=== PATIENT | female | born 1950 | race American Indian/Alaskan Native ===

== ENCOUNTER 2018-01-10 09:02 | Observation (INO) | payer MEDICARE ==
[2018-01-10 09:39] LABS: Basophils # (Auto) 0.1 K/mm3 (0.0-0.1); Basophils % (Auto) 1.1 % (0.0-1.8); Eosinophils # (Auto) 0.7 K/mm3 (0.0-0.4); Eosinophils % (Auto) 9.2 % (0.0-4.3); Hematocrit 36.4 % (30.3-42.9); Hemoglobin 12.3 gm/dl (10.1-14.3); Lymphocytes # (Auto) 1.7 K/mm3 (1.2-5.4); Lymphocytes % (Auto) 23.5 % (13.4-35.0); Mean Corpuscular HGB Conc 34 % (30-34); Mean Corpuscular Hemoglobin 31 pg (28-32); Mean Corpuscular Volume 92 fl (79-97); Monocytes # (Auto) 0.5 K/mm3 (0.0-0.8); Monocytes % (Auto) 7.4 % (0.0-7.3); Platelet Count 296 K/mm3 (140-440); Red Blood Count 3.97 M/mm3 (3.65-5.03); Red Cell Distribution Width 16.2 % (13.2-15.2)
[2018-01-10] MEDS ORDERED: NITROSTAT SL PRN (09:51)
[2018-01-10] MEDS ORDERED: MORPHINE IV ONE (09:51)
--- NOTE | 2018-01-10 09:52 | Emergency Department Report ---
ED Chest Pain HPI - General Chief Complaint: Chest Pain Stated Complaint: CHEST PAIN Time Seen by Provider: 01/10/18 09:37 Source: patient, RN notes reviewed, old records reviewed Mode of arrival: Ambulatory Limitations: No Limitations - History of Present Illness Initial Comments: This is a pleasant 67-year-old female who is not known to this provider previously, has a past medical history of ischemic heart disease, status post PCI, for cardiac graft, high cholesterol, hypertension. Her framer is Dr. Perales Patient presents to the ER with a complaint of intermittent chest pain, which radiates to the left arm, intermittently since Saturday. The pain feels tight and squeezing. It does not have exacerbating or relieving factors. Denies vomiting, diaphoresis, has intermittent shortness of breath, denies DVT, pulmonary embolus risk factors. Reports compliance with her Plavix therapy. Had a cardiac catheterization at this hospital about one year ago, which demonstrated a [place] coronary system, left main and LAD, mid 80% diagonal, 100 % circumflex patent, RCA 100%. Also found to have "all bypass grafts were open within normal LAD function, normal left end-diastolic pressure was 12 mmHg." MD Complaint: chest pain -: Gradual Onset: during rest, during exertion Pain Location: substernal, left chest Pain Radiation: LUE Severity: moderate Quality: tightness, aching Consistency: intermittent Improves With: nothing Worsens With: nothing re: dyspnea Aspirin use within the Past 7 Days: (0) No - Related Data On Oral Contraceptives: No Home Medications Medication Instructions Recorded Confirmed Last Taken Clopidogrel [Plavix] 75 mg PO DAILY 10/19/13 01/10/18 12/05/16 Losartan [Cozaar] 100 mg PO QDAY 01/10/18 01/10/18 Unknown Previous Rx's Medication Instructions Recorded Last Taken Type Acetaminophen [Acetaminophen TAB] 325 mg PO Q4H PRN #30 tablet 12/07/16 Unknown Rx AtorvaSTATin [Lipitor] 40 mg PO HS #30 tablet 12/07/16 Unknown Rx Famotidine [Pepcid] 20 mg PO BID #60 tablet 12/07/16 Unknown Rx ISOSORBIDE MONOnitrate [Imdur ER] 60 mg PO QDAY #30 day 12/07/16 Unknown Rx Metoprolol [Lopressor TAB] 50 mg PO BID #60 tablet 12/07/16 Unknown Rx Allergies Allergy/AdvReac Type Severity Reaction Status Date / Time aspirin Allergy Swelling Verified 01/10/18 09:15 shellfish Allergy Anaphylaxis Uncoded 05/30/15 08:04 Heart Score - HEART Score History: Moderately suspicious EKG: Non-specific Age: > 65 Risk factors: > 3 risk factors or hx of atherosclerotic disease Troponin: < normal limit HEART Score: 6 - Critical Actions Critical Actions: 4-6 pts:12-16.6% risk of adverse cardiac event. Should be admitted ED Review of Systems ROS: Stated complaint: CHEST PAIN Other details as noted in HPI Comment: All other systems reviewed and negative Cardiovascular: chest pain ED Past Medical Hx - Past Medical History Hx Hypertension: Yes Hx CVA: Yes (x3) Hx Heart Attack/AMI: Yes Hx Arthritis: Yes Hx Asthma: Yes Hx COPD: No Additional medical history: gout - Surgical History Hx Coronary Stent: Yes (1999 & 2001) Hx Open Heart Surgery: Yes Additional Surgical History: bypass x 4, bilateral knee surgeries - Social History Smoking Status: Never Smoker Substance Use Type: Alcohol - Medications Home Medications: Home Medications Medication Instructions Recorded Confirmed Last Taken Type Clopidogrel [Plavix] 75 mg PO DAILY 10/19/13 01/10/18 12/05/16 History Acetaminophen [Acetaminophen TAB] 325 mg PO Q4H PRN #30 tablet 12/07/16 Unknown Rx AtorvaSTATin [Lipitor] 40 mg PO HS #30 tablet 12/07/16 01/10/18 Unknown Rx Famotidine [Pepcid] 20 mg PO BID #60 tablet 12/07/16 01/10/18 Unknown Rx ISOSORBIDE MONOnitrate [Imdur ER] 60 mg PO QDAY #30 day 12/07/16 01/10/18 Unknown Rx Metoprolol [Lopressor TAB] 50 mg PO BID #60 tablet 12/07/16 01/10/18 Unknown Rx Losartan [Cozaar] 100 mg PO QDAY 01/10/18 01/10/18 Unknown History ED Physical Exam - General Limitations: No Limitations General appearance: alert, in no apparent distress - Head Head exam: Present: atraumatic, normocephalic - Eye Eye exam: Present: normal appearance, EOMI. Absent: nystagmus - ENT ENT exam: Present: normal exam, normal orophraynx, mucous membranes moist, normal external ear exam - Neck Neck exam: Present: normal inspection, full ROM. Absent: tenderness, meningismus - Respiratory Respiratory exam: Present: normal lung sounds bilaterally. Absent: respiratory distress - Cardiovascular Cardiovascular Exam: Present: regular rate, normal rhythm, normal heart sounds. Absent: bradycardia, tachycardia, irregular rhythm, systolic murmur, diastolic murmur, rubs, gallop - GI/Abdominal GI/Abdominal exam: Present: soft. Absent: distended, tenderness, guarding, rebound, rigid, pulsatile mass - Extremities Exam Extremities exam: Present: normal inspection, full ROM, normal capillary refill , other (2+ pulses noted in the bilateral upper, lower extremities. Compartments soft. No long bony tenderness. The pelvis is stable.). Absent: pedal edema, joint swelling, calf tenderness - Back Exam Back exam: Present: normal inspection, full ROM. Absent: tenderness, CVA tenderness (R), paraspinal tenderness, vertebral tenderness - Neurological Exam Neurological exam: Present: alert, oriented X3, CN II-XII intact, normal gait, other (Extraocular movements intact. Tongue midline. No facial droop. Facial sensation intact to light touch in the V1, V2, V3 distribution bilaterally. 5 and 5 strength in 4 extremities.. Sensation is intact to light touch in 4 extremities.). Absent: motor sensory deficit - Psychiatric Psychiatric exam: Present: normal affect, normal mood - Skin Skin exam: Present: warm, dry, intact, normal color. Absent: rash ED Course Vital Signs 01/10/18 09:15 Temperature 98.2 F Pulse Rate 60 Respiratory 18 Rate Blood Pressure 191/92 O2 Sat by Pulse 100 Oximetry JANNA score - Janna Score Age > 65: (1) Yes Aspirin use within the Past 7 Days: (0) No 3 or more CAD Risk Factors: (1) Yes 2 or more Angina events in past 24 hrs: (1) Yes Known CAD with more than 50% Stenosis: (1) Yes Elevated Cardiac Markers: (0) No ST Deviation Greater than 0.5mm: (0) No JANNA Score: 4 ED Medical Decision Making - Lab Data Result diagrams: 01/10/18 09:27 01/10/18 09:27 Vital Signs 01/10/18 09:15 Temperature 98.2 F Pulse Rate 60 Respiratory 18 Rate Blood Pressure 191/92 O2 Sat by Pulse 100 Oximetry Lab Results 01/10/18 01/10/18 01/10/18 Range/Units 09:27 09:27 09:53 WBC 7.2 (4.5-11.0) K/mm3 RBC 3.97 (3.65-5.03) M/mm3 Hgb 12.3 (10.1-14.3) gm/dl Hct 36.4 (30.3-42.9) % MCV 92 (79-97) fl MCH 31 (28-32) pg MCHC 34 (30-34) % RDW 16.2 H (13.2-15.2) % Plt Count 296 (140-440) K/mm3 Lymph % (Auto) 23.5 (13.4-35.0) % [place] % (Auto) 7.4 H (0.0-7.3) % Eos % (Auto) 9.2 H (0.0-4.3) % Baso % (Auto) 1.1 (0.0-1.8) % Lymph # 1.7 (1.2-5.4) K/mm3 [place] # 0.5 (0.0-0.8) K/mm3 Eos # 0.7 H (0.0-0.4) K/mm3 Baso # 0.1 (0.0-0.1) K/mm3 Seg Neutrophils % 58.8 (40.0-70.0) % Seg Neutrophils # 4.2 (1.8-7.7) K/mm3 PT 13.1 (12.2-14.9) Sec. INR 0.94 (0.87-1.13) APTT 28.1 (24.2-36.6) Sec. Sodium 141 (137-145) mmol/L Potassium 3.7 (3.6-5.0) mmol/L Chloride 103.5 (98-107) mmol/L Carbon Dioxide 24 (22-30) mmol/L Anion Gap 17 mmol/L BUN 15 (7-17) mg/dL Creatinine 0.9 (0.7-1.2) mg/dL Estimated GFR > 60 ml/min BUN/Creatinine Ratio 17 % Glucose 110 H (65-100) mg/dL Calcium 9.0 (8.4-10.2) mg/dL Troponin T < 0.010 (0.00-0.029) ng/mL - EKG Data -: EKG Interpreted by Me - EKG Data 01/10/18 10:53 EKG is sinus, 67 bpm, normal axis, QTC prolonged, Q waves noted in 1, aVL, QTC prolonged, borderline left ventricular hypertrophy, abnormal EKG, this EKG is not a stemi, appears grossly unchanged from prior from 12/06/2016. - Radiology Data Radiology results: report reviewed, image reviewed X-ray the chest is unremarkable - Medical Decision Making Differential diagnosis, including but not limited to: GERD, gastritis, costochondritis, pericarditis, myocarditis, acute coronary syndrome Assessment and plan: 67-year-old female with known history of ischemic heart disease, with no pulmonary embolus or DVT risk factors, low risk by well's criteria with resting chest pain. She is afebrile and hypertensive. She will be given Lopressor and pain medication. She is allergic to aspirin and will be given Plavix. We have placed a page out to her covering framer, and I'm currently awaiting callback. She received a cardiac risk stratification one year ago. I have contacted the Hospital physician, Dr. Montero, who has graciously accepted the patient to the medical service for repeat cardiac risk stratification. Critical care attestation.: If time is entered above; I have spent that time in minutes in the direct care of this critically ill patient, excluding procedure time. ED Disposition Clinical Impression: CAD (coronary artery disease), Hx of CABG Disposition: OP ADMIT IP TO THIS HOSP Is pt being admited?: Yes Condition: Good Referrals: PRIMARY CARE, [Primary Care Provider] - 3-5 Days
[2018-01-10 09:58] LABS: BUN/Creatinine Ratio 17; Blood Urea Nitrogen 15 mg/dL (7-17); Hemolysis Index 5
[2018-01-10 10:22] LABS: INR 0.94 (0.87-1.13)
[2018-01-10 10:23] LABS: Partial Thromboplastin Time 28.1 Sec. (24.2-36.6)
[2018-01-10] MEDS ORDERED: MORPHINE ONE (10:30)
--- NOTE | 2018-01-10 10:38 | XRay Report ---
AP CHEST: HISTORY: chest pain Previous CABG changes are suspected. AP view of the chest demonstrates a normal mediastinal and cardiac contour with clear lungs and normal bony and soft tissue structures. IMPRESSION: Unremarkable AP chest.
--- NOTE | 2018-01-10 10:45 | History and Physical Report ---
History of Present Illness Date of examination: 01/10/18 Date of admission: 01/10/18 Chief complaint: cp History of present illness: The pt is a 67 YO female with a past medical history significant for hypertension, diet-controlled diabetes mellitus type 2, CAD, s/p PCI in 1999 and 2001, CABG (12/13/11, 4 graft(s), RUIZ>LAD, SVG>OM, SVG>Diag, SVG>PDA), HLP and ASA allergy who presents to the emergency department with complaints of chest pain and associated shortness of breath. Patient reports that her chest pain has progressively worsened over the past week. Patient reports having 3-4 episodes per day lasting approximately 30 minutes to an hour before each episode. Patient describes the pain as a squeezing sensation, 10/10 in severity and nonradiating. Patient reports associated dyspnea but unassociated with exertional activity. However, she does report that the pain is 100% reproducible with leaning over or bending forward. She denies nausea or vomiting but does report diaphoresis. She denies any cough or cold-like symptoms. No fever or chills. No headache or visual symptoms. Past History Past Medical History: arthritis, CAD, diabetes (diet-controlled), hypertension, hyperlipidemia, stroke, other (gout) Past Surgical History: CABG Social history: no significant social history Family history: no significant family history Medications and Allergies Allergies Allergy/AdvReac Type Severity Reaction Status Date / Time aspirin Allergy Swelling Verified 01/10/18 09:15 shellfish Allergy Anaphylaxis Uncoded 05/30/15 08:04 Home Medications Medication Instructions Recorded Confirmed Last Taken Type Clopidogrel [Plavix] 75 mg PO DAILY 10/19/13 01/10/18 12/05/16 History Acetaminophen [Acetaminophen TAB] 325 mg PO Q4H PRN #30 tablet 12/07/16 Unknown Rx AtorvaSTATin [Lipitor] 40 mg PO HS #30 tablet 12/07/16 01/10/18 Unknown Rx Famotidine [Pepcid] 20 mg PO BID #60 tablet 12/07/16 01/10/18 Unknown Rx ISOSORBIDE MONOnitrate [Imdur ER] 60 mg PO QDAY #30 day 12/07/16 01/10/18 Unknown Rx Metoprolol [Lopressor TAB] 50 mg PO BID #60 tablet 12/07/16 01/10/18 Unknown Rx Losartan [Cozaar] 100 mg PO QDAY 01/10/18 01/10/18 Unknown History Active Meds: Active Medications Nitroglycerin (Nitrostat) 0.4 mg SL .Q5MIN PRN PRN Reason: Chest Pain Review of Systems All systems: negative Exam - Constitutional Vitals: Temp Pulse Resp BP Pulse Ox 98.2 F 60 18 191/92 100 01/10/18 09:15 01/10/18 09:15 01/10/18 09:15 01/10/18 09:15 01/10/18 09:15 General appearance: Present: no acute distress, well-nourished - EENT Eyes: Present: PERRL ENT: hearing intact, clear oral mucosa - Neck Neck: Present: supple, normal ROM - Respiratory Respiratory effort: normal Respiratory: bilateral: CTA - Cardiovascular Heart Sounds: Present: S1 & S2. Absent: rub, click - Extremities Extremities: pulses symmetrical, No edema Peripheral Pulses: within normal limits - Abdominal General gastrointestinal: Present: soft, non-tender, non-distended, normal bowel sounds Female genitourinary: Present: normal - Integumentary Integumentary: Present: clear, warm, dry - Musculoskeletal Musculoskeletal: gait normal, strength equal bilaterally - Psychiatric Psychiatric: appropriate mood/affect, intact judgment & insight - Neurologic Neurologic: CNII-XII intact, moves all extremities Results - Labs CBC & Chem 7: 01/10/18 09:27 01/10/18 09:27 Labs: Laboratory Last Values WBC 7.2 K/mm3 (4.5-11.0) 01/10/18 09:27 RBC 3.97 M/mm3 (3.65-5.03) 01/10/18 09:27 Hgb 12.3 gm/dl (10.1-14.3) 01/10/18 09:27 Hct 36.4 % (30.3-42.9) 01/10/18 09:27 MCV 92 fl (79-97) 01/10/18 09:27 MCH 31 pg (28-32) 01/10/18 09:27 MCHC 34 % (30-34) 01/10/18 09:27 RDW 16.2 % (13.2-15.2) H 01/10/18 09:27 Plt Count 296 K/mm3 (140-440) 01/10/18 09:27 Lymph % (Auto) 23.5 % (13.4-35.0) 01/10/18 09:27 [place] % (Auto) 7.4 % (0.0-7.3) H 01/10/18 09:27 Eos % (Auto) 9.2 % (0.0-4.3) H 01/10/18 09:27 Baso % (Auto) 1.1 % (0.0-1.8) 01/10/18 09:27 Lymph # 1.7 K/mm3 (1.2-5.4) 01/10/18 09:27 [place] # 0.5 K/mm3 (0.0-0.8) 01/10/18 09:27 Eos # 0.7 K/mm3 (0.0-0.4) H 01/10/18 09:27 Baso # 0.1 K/mm3 (0.0-0.1) 01/10/18 09:27 Seg Neutrophils % 58.8 % (40.0-70.0) 01/10/18 09:27 Seg Neutrophils # 4.2 K/mm3 (1.8-7.7) 01/10/18 09:27 PT 13.1 Sec. (12.2-14.9) 01/10/18 09:53 INR 0.94 (0.87-1.13) 01/10/18 09:53 APTT 28.1 Sec. (24.2-36.6) 01/10/18 09:53 Sodium 141 mmol/L (137-145) 01/10/18 09:27 Potassium 3.7 mmol/L (3.6-5.0) 01/10/18 09:27 Chloride 103.5 mmol/L (98-107) 01/10/18 09:27 Carbon Dioxide 24 mmol/L (22-30) 01/10/18 09:27 Anion Gap 17 mmol/L 01/10/18 09:27 BUN 15 mg/dL (7-17) 01/10/18 09:27 Creatinine 0.9 mg/dL (0.7-1.2) 01/10/18 09:27 Estimated GFR > 60 ml/min 01/10/18 09:27 BUN/Creatinine Ratio 17 % 01/10/18 09:27 Glucose 110 mg/dL (65-100) H 01/10/18 09:27 Calcium 9.0 mg/dL (8.4-10.2) 01/10/18 09:27 Troponin T < 0.010 ng/mL (0.00-0.029) 01/10/18 09:27 Assessment and Plan Assessment and plan: ACS/unstable angina. The patient will be placed on the chest pain protocol. We will follow-up cardiac isoenzymes and serial EKG. Cardiology has been consulted by the ER physician. We will defer to cardiology with regards to stress test versus cardiac catheterization. The patient does report 100% reproducible pain with leaning forward. Therefore, we will obtain an echocardiogram to rule out pericardial effusion. Coronary artery disease. Patient with history of MA X 2/stent and CABG 3. Continue Imdur, losartan, Lopressor, Plavix, Lipitor and aspirin. Hypertension. Resume antihypertensive medications. Diabetes mellitus type II, diet-controlled. ADA diet. Accu-Cheks before meals and at bedtime. Hyperlipidemia. Resume anti-lipids. Gout. Osteoarthritis. ASA allergy. DVT prophylaxis. Lovenox daily.
[2018-01-10] MEDS ORDERED: ZOFRAN IV PRN (10:50)
[2018-01-10] MEDS ORDERED: TYLENOL PO PRN (10:50)
[2018-01-10] MEDS ORDERED: SODIUM CHLORIDE FLUSH SYRINGE 10 ML IV PRN (10:50)
[2018-01-10] MEDS ORDERED: LOPRESSOR IV ONE (10:52)
[2018-01-10] MEDS ORDERED: PLAVIX PO ONE (10:53)
[2018-01-10] MEDS ORDERED: PLAVIX ONE (11:31)
--- NOTE | 2018-01-10 13:41 | Consultation ---
History of Present Illness Consult date: 01/10/18 Requesting physician: BETHANIE HANDY Consult reason: chest pain History of present illness: The pt is a 67 YO female with a past medical history significant for CAD, s/p PCI in 1999 and 2001, CABG (12/13/11, 4 grafts, RUIZ>LAD, SVG>OM, SVG>Diag, SVG> PDA), HTN, HLP, ASA allergy. She is followed in our office by Dr. Bird. She presented with c/o chest pain since Saturday. She describes her chest pain as an intermittent (lasts for appox 20 minutes per episode), midsternal tugging and squeezing sensation which is aggravated by bending forwards. The pain sometimes radiates down her left arm. The pain is sometimes worsened by deep inspiration. Additionally, she c/o some localized swelling at the side of her right neck and some upper back pain with swelling. LHC done 11/2016 showed patent grafts. Echo done 11/2016 showed EF 60-65%, trace TR, impaired relaxation. Past History Past Medical History: arthritis, CAD, diabetes (diet-controlled), hypertension, hyperlipidemia, stroke, other (gout) Past Surgical History: CABG Social history: no significant social history Family history: no significant family history Medications and Allergies Allergies Allergy/AdvReac Type Severity Reaction Status Date / Time aspirin Allergy Swelling Verified 01/10/18 09:15 shellfish Allergy Anaphylaxis Uncoded 05/30/15 08:04 Home Medications Medication Instructions Recorded Confirmed Last Taken Type Clopidogrel [Plavix] 75 mg PO DAILY 10/19/13 01/10/18 12/05/16 History Acetaminophen [Acetaminophen TAB] 325 mg PO Q4H PRN #30 tablet 12/07/16 Unknown Rx AtorvaSTATin [Lipitor] 40 mg PO HS #30 tablet 12/07/16 01/10/18 Unknown Rx Famotidine [Pepcid] 20 mg PO BID #60 tablet 12/07/16 01/10/18 Unknown Rx ISOSORBIDE MONOnitrate [Imdur ER] 60 mg PO QDAY #30 day 12/07/16 01/10/18 Unknown Rx Metoprolol [Lopressor TAB] 50 mg PO BID #60 tablet 12/07/16 01/10/18 Unknown Rx Losartan [Cozaar] 100 mg PO QDAY 01/10/18 01/10/18 Unknown History Active Meds: Active Medications Acetaminophen (Tylenol) 650 mg PO Q4H PRN PRN Reason: Pain MILD(1-3)/Fever >100.5/MIGUEL Atorvastatin Calcium (Lipitor) 40 mg PO HS [facility] Clopidogrel Bisulfate (Plavix) 75 mg PO DAILY [facility] Enoxaparin Sodium (Lovenox) 40 mg SUB-Q QDAY [facility] Famotidine (Pepcid) 20 mg PO BID [facility] Isosorbide Mononitrate (Imdur) 60 mg PO QDAY [facility] Losartan Potassium (Cozaar) 100 mg PO QDAY [facility] Metoprolol Tartrate (Lopressor) 50 mg PO BID [facility] Nitroglycerin (Nitrostat) 0.4 mg SL .Q5MIN PRN PRN Reason: Chest Pain Ondansetron HCl (Zofran) 4 mg IV Q8H PRN PRN Reason: Nausea And Vomiting Sodium Chloride (Sodium Chloride Flush Syringe 10 Ml) 10 ml IV BID [facility] Sodium Chloride (Sodium Chloride Flush Syringe 10 Ml) 10 ml IV PRN PRN PRN Reason: LINE FLUSH Review of Systems Constitutional: no weight loss, no weight gain, no fever, no chills, no sweats Ears, nose, mouth and throat: no ear pain, no nose pain, no sinus pressure, no sinus pain Cardiovascular: chest pain, no orthopnea, no palpitations, no rapid/irregular heart beat, no edema, no syncope, no lightheadedness, no shortness of breath, no dyspnea on exertion Respiratory: no cough, no shortness of breath, no dyspnea on exertion, no congestion, no wheezing, no pain on inspiration Gastrointestinal: no abdominal pain, no nausea, no vomiting, no diarrhea, no constipation Genitourinary Female: no pelvic pain, no flank pain, no dysuria, no urinary frequency, no urgency Integumentary: no rash, no pruritis, no redness, no sores, no wounds Neurological: no head injury, no paralysis, no weakness, no parathesias, no numbness, no tingling, no seizures, no syncope Psychiatric: no anxiety Endocrine: no cold intolerance, no heat intolerance Hematologic/Lymphatic: no easy bruising, no easy bleeding Allergic/Immunologic: no urticaria, no wheezing Physical Examination Vital Signs Temp Pulse Resp BP Pulse Ox 98.2 F 60 18 191/92 100 10/19/18 09:15 01/10/18 09:15 01/10/18 09:15 01/10/18 09:15 01/10/18 09:15 General appearance: no acute distress HEENT: Positive: PERRL, Normocephaly, Mucus Membranes Moist Neck: Positive: neck supple, trachea midline Cardiac: Positive: Reg Rate and Rhythm, S1/S2 Lungs: Positive: clear to auscultation Neuro: Positive: Grossly Intact Abdomen: Positive: Soft. Negative: Tender Skin: Negative: Clear, Rash, Wound Musculoskeletal: No Pain Extremities: Absent: edema Results 01/10/18 09:27 01/10/18 09:27 Coagulation 01/10/18 Range/Units 09:53 PT 13.1 (12.2-14.9) Sec. INR 0.94 (0.87-1.13) APTT 28.1 (24.2-36.6) Sec. CBC 01/10/18 Range/Units 09:27 WBC 7.2 (4.5-11.0) K/mm3 RBC 3.97 (3.65-5.03) M/mm3 Hgb 12.3 (10.1-14.3) gm/dl Hct 36.4 (30.3-42.9) % Plt Count 296 (140-440) K/mm3 Lymph # 1.7 (1.2-5.4) K/mm3 [place] # 0.5 (0.0-0.8) K/mm3 Eos # 0.7 H (0.0-0.4) K/mm3 Baso # 0.1 (0.0-0.1) K/mm3 Comprehensive Metabolic Panel 01/10/18 Range/Units 09:27 Sodium 141 (137-145) mmol/L Potassium 3.7 (3.6-5.0) mmol/L Chloride 103.5 (98-107) mmol/L Carbon Dioxide 24 (22-30) mmol/L BUN 15 (7-17) mg/dL Creatinine 0.9 (0.7-1.2) mg/dL Glucose 110 H (65-100) mg/dL Calcium 9.0 (8.4-10.2) mg/dL - Imaging and Cardiology Echo: report reviewed ( 11/2016 showed EF 60-65%, trace TR, impaired relaxation. ) Cardiac cath: report reviewed (11/2016 showed patent grafts) EKG: report reviewed, image reviewed EKG interpretations - Telemetry EKG Rhythm: Sinus Rhythm - EKG Sinus rhythms and dysrhythmias: sinus rhythm Assessment and Plan Assessment: Chest pain, atypical Neck pain / back pain / neck swelling CAD, s/p PCI and CABG x 4 HTN HLP ASA allergy - caused hives and throat swelling per pt report. Plan: ECG shows no acute ischemic changes. Inderjit negative for AMI. LHC done 11/2016 showed patent grafts. No plans for repeat ischemic evaluation at this time. F/u echo. Resume home cardiac regimen. Will obtain soft tissue neck ultrasound and thyroid profile in setting of neck pain and swelling. The patient has been seen in conjunction with Dr. Zuñiga who agrees with the assessment and plan of care.
--- NOTE | 2018-01-10 16:10 | Ultrasound Report ---
FINAL REPORT EXAM: US SOFT TISSUE HEAD AND NECK HISTORY: neck swelling TECHNIQUE: Grayscale and color-flow imaging of the soft tissues of the neck on the right was performed. Comparison: None FINDINGS: There is an approximately 7.8 centimeter x 3 centimeter x 1.6 centimeter slightly heterogeneous soft tissue mass . There is no demonstration of significant internal vascularity. There is no demonstration of a fatty hilum. This is of unclear etiology. IMPRESSION: 1. Slightly heterogeneous soft tissue mass right neck that is of unclear etiology. CT of the neck with IV contrast or MRI would be helpful for further evaluation.
[2018-01-10] MEDS: LOPRESSOR PO SCH (22:50)
[2018-01-10] MEDS: SODIUM CHLORIDE FLUSH SYRINGE 10 ML IV SCH (22:50)
[2018-01-10] MEDS: PEPCID PO SCH (22:51)
[2018-01-11 04:45] LABS: Basophils # (Auto) 0.1 K/mm3 (0.0-0.1); Basophils % (Auto) 1.1 % (0.0-1.8); Eosinophils # (Auto) 0.6 K/mm3 (0.0-0.4); Hematocrit 34.2 % (30.3-42.9); Hemoglobin 11.4 gm/dl (10.1-14.3); Lymphocytes % (Auto) 30.4 % (13.4-35.0); Mean Corpuscular HGB Conc 33 % (30-34); Mean Corpuscular Hemoglobin 31 pg (28-32); Mean Corpuscular Volume 92 fl (79-97); Monocytes # (Auto) 0.6 K/mm3 (0.0-0.8); Monocytes % (Auto) 9.5 % (0.0-7.3); Platelet Count 256 K/mm3 (140-440); Red Blood Count 3.72 M/mm3 (3.65-5.03)
[2018-01-11 04:59] LABS: BUN/Creatinine Ratio 16; Blood Urea Nitrogen 13 mg/dL (7-17); Calcium 9.1 mg/dL (8.4-10.2); Hemolysis Index 2
--- NOTE | 2018-01-11 08:58 | Progress Note ---
Assessment and Plan atypical chest pain shoulder mass cad s/p cabg htn chol rec: thyroid u/s negative, thyroid panel normal, in view of the chronicity of right shoulder swelling will see outpatient general surgery patient be treated with pain control as is elevating her blood pressure and may be discharged from a cardiorespiratory review as recent cardiac cath revealed patent bypass grafts with negative troponin Subjective Date of service: 01/11/18 Principal diagnosis: right shoulder pain and chest pain Interval history: right shoulder swelling has been going on for two years , Objective Vital Signs Temp Pulse Resp BP BP Pulse Ox 01/11/18 05:55 98.3 F 54 L 20 158/82 100 01/11/18 01:01 98.4 F 51 L 20 158/77 95 01/10/18 21:01 18 01/10/18 20:18 66 177/89 01/10/18 20:17 98.0 F 64 18 175/89 96 01/10/18 18:11 97.8 F 63 18 166/80 98 01/10/18 14:30 58 L 16 143/85 98 01/10/18 14:21 56 L 22 143/85 99 01/10/18 14:11 53 L 18 143/85 99 01/10/18 14:00 56 L 22 143/85 99 01/10/18 13:51 55 L 21 140/81 100 01/10/18 13:41 71 21 140/81 98 01/10/18 13:31 64 21 140/81 99 01/10/18 13:21 62 22 140/81 97 01/10/18 13:11 55 L 19 140/81 98 01/10/18 13:00 53 L 15 133/82 100 01/10/18 12:51 54 L 19 140/81 99 01/10/18 12:41 54 L 21 140/81 98 01/10/18 12:31 55 L 22 140/81 97 01/10/18 12:21 57 L 15 140/81 100 01/10/18 12:11 54 L 15 140/81 98 01/10/18 12:00 54 L 17 140/81 98 01/10/18 11:54 50 L 14 138/81 97 01/10/18 11:51 54 L 13 138/81 98 01/10/18 11:31 53 L 11 L 133/72 99 01/10/18 11:15 52 L 12 133/72 98 01/10/18 11:00 51 L 17 138/81 98 01/10/18 10:45 52 L 14 133/72 98 01/10/18 10:31 53 L 13 133/72 99 01/10/18 10:15 52 L 18 133/72 99 01/10/18 10:00 53 L 12 133/72 98 01/10/18 09:45 54 L 19 100 01/10/18 09:15 98.2 F 60 18 191/92 100 - Physical Examination General: No Apparent Distress HEENT: Positive: PERRL, Normocephaly, Mucus Membranes Moist Neck: Positive: neck supple, trachea midline, Other (shoulder soft mass) Cardiac: Positive: Reg Rate and Rhythm Lungs: Positive: clear to auscultation Neuro: Positive: Grossly Intact Abdomen: Positive: Soft. Negative: Tender Skin: Negative: Clear, Rash, Wound Musculoskeletal: No Pain Extremities: Absent: edema - Labs and Meds Coagulation 01/10/18 Range/Units 09:53 PT 13.1 (12.2-14.9) Sec. INR 0.94 (0.87-1.13) APTT 28.1 (24.2-36.6) Sec. CBC 01/10/18 01/11/18 Range/Units 09:27 04:01 WBC 7.2 6.5 (4.5-11.0) K/mm3 RBC 3.97 3.72 (3.65-5.03) M/mm3 Hgb 12.3 11.4 (10.1-14.3) gm/dl Hct 36.4 34.2 (30.3-42.9) % Plt Count 296 256 (140-440) K/mm3 Lymph # 1.7 2.0 (1.2-5.4) K/mm3 [place] # 0.5 0.6 (0.0-0.8) K/mm3 Eos # 0.7 H 0.6 H (0.0-0.4) K/mm3 Baso # 0.1 0.1 (0.0-0.1) K/mm3 Comprehensive Metabolic Panel 01/10/18 01/11/18 Range/Units 09:27 04:01 Sodium 141 142 (137-145) mmol/L Potassium 3.7 3.6 (3.6-5.0) mmol/L Chloride 103.5 106.6 (98-107) mmol/L Carbon Dioxide 24 24 (22-30) mmol/L BUN 15 13 (7-17) mg/dL Creatinine 0.9 0.8 (0.7-1.2) mg/dL Glucose 110 H 101 H (65-100) mg/dL Calcium 9.0 9.1 (8.4-10.2) mg/dL - Imaging and Cardiology EKG: report reviewed, image reviewed Echo: report reviewed ( 11/2016 showed EF 60-65%, trace TR, impaired relaxation. ) Cardiac cath: report reviewed (11/2016 showed patent grafts) - Telemetry EKG Rhythm: Sinus Rhythm - EKG Sinus rhythms and dysrhythmias: sinus rhythm
[2018-01-11 09:00] VITALS: BP 185/70
[2018-01-11] MEDS ORDERED: COZAAR PO SCH (10:00)
[2018-01-11] MEDS ORDERED: IMDUR PO SCH (10:00)
[2018-01-11] MEDS ORDERED: LOVENOX SUB-Q SCH (10:00)
[2018-01-11] MEDS ORDERED: PLAVIX PO SCH (10:00)
[2018-01-11] MEDS: PEPCID PO SCH (10:02)
[2018-01-11] MEDS: LOPRESSOR PO SCH (10:02)
[2018-01-11] MEDS: SODIUM CHLORIDE FLUSH SYRINGE 10 ML IV SCH (10:04)
--- NOTE | 2018-01-11 10:15 | Discharge Summary ---
Providers - Providers Date of Admission: 01/10/18 10:52 Date of discharge: 01/11/18 Attending physician: DAYNE ESCALERA 01/10/18 Consult to Cardiac Rehabilitation [CONS] Routine Reason For Exam: Phase 1 01/10/18 09:50 Consult to Physician [CONS] Urgent Comment: Consulting Provider: JORDON ROMO Physician Instructions: Reason For Exam: cp 01/10/18 10:52 Consult to Cardiology [CONS] Routine Consulting Provider: JORDON ROMO Reason For Exam: unstable angina Primary care physician: RADIATOR REPAIRER Hospitalization Reason for admission: cp Condition: Good Hospital course: The pt is a 67 YO female with a past medical history significant for hypertension, diet-controlled diabetes mellitus type 2, CAD, s/p PCI in 1999 and 2001, CABG (12/13/11, 4 graft(s), RUIZ>LAD, SVG>OM, SVG>Diag, SVG>PDA), HLP and ASA allergy who presented to the emergency department with complaints of chest pain and associated shortness of breath. The patient was noted to have ECG with no acute ischemic changes and cardiac isoenzymes negative for acute NC. LHC done 11/2016 showed patent grafts. Cardiology saw the patient in consultation and had no plans for repeat ischemic evaluation at this time. Echocardiogram was ordered and will be completed and followed up as an outpatient with cardiology. The patient was noted to have some soft tissue neck swelling and underwent thyroid ultrasound. Thyroid u/s negative, thyroid panel normal. Patient will followed up as an outpatient general surgery for the soft tissue swelling. Patient will be given pain control. Cardiology reports that the patient may be discharged from a cardiorespiratory review as recent cardiac cath revealed patent bypass grafts with negative troponin. Dedicated discharge time 32 minutes. Disposition: DC- TO HOME OR SELFCARE Time spent for discharge: 32 - Discharge Diagnoses (1) CAD (coronary artery disease) Status: Chronic (2) HTN (hypertension) Status: Acute (3) Neck pain, bilateral Status: Acute (4) Hyperlipidemia Status: Chronic (5) Hypertension Status: Chronic Qualifiers: Hypertension type: essential hypertension Qualified Code(s): I10 - Essential (primary) hypertension Core Measure Documentation - Palliative Care Palliative Care/ Comfort Measures: Not Applicable - Core Measures Any of the following diagnoses?: none Exam - Constitutional Vitals: Temp Pulse Resp BP Pulse Ox 98.6 F 68 18 185/70 100 01/11/18 08:58 01/11/18 10:03 01/11/18 08:58 01/11/18 10:03 01/11/18 08:58 General appearance: Present: no acute distress, well-nourished - EENT Eyes: Present: PERRL ENT: hearing intact, clear oral mucosa - Neck Neck: Present: supple, normal ROM - Respiratory Respiratory effort: normal Respiratory: bilateral: CTA - Cardiovascular Heart Sounds: Present: S1 & S2. Absent: rub, click - Extremities Extremities: pulses symmetrical, No edema Peripheral Pulses: within normal limits - Abdominal General gastrointestinal: Present: soft, non-tender, non-distended, normal bowel sounds Female genitourinary: Present: normal - Integumentary Integumentary: Present: clear, warm, dry - Musculoskeletal Musculoskeletal: gait normal, strength equal bilaterally - Psychiatric Psychiatric: appropriate mood/affect, intact judgment & insight - Neurologic Neurologic: CNII-XII intact, moves all extremities Plan Activity: no restrictions Weight Bearing Status: Full Weight Bearing Diet: low fat, low cholesterol, low salt Additional Instructions: in view of the chronicity of right shoulder swelling will see outpatient general surgery Follow up with: PRIMARY MD CHASIDY [Primary Care Provider] - 3-5 Days JACKELYN JIM MD [Staff Physician] - 7 Days SPENCER VICENTE MD [Staff Physician] - 7 Days Prescriptions: AtorvaSTATin [Lipitor] 40 mg PO HS #30 tablet Clopidogrel [Plavix] 75 mg PO DAILY #30 tablet Famotidine [Pepcid] 20 mg PO BID #60 tablet ISOSORBIDE MONOnitrate [Imdur ER] 60 mg PO QDAY #30 day Losartan [Cozaar] 100 mg PO QDAY #30 tablet Metoprolol [Lopressor TAB] 50 mg PO BID #60 tablet oxyCODONE /ACETAMINOPHEN [Percocet 5/325] 1 tab PO Q4HR #12 tab
[2018-01-11] MEDS ORDERED: AFLURIA QUAD 2018-2019 SYRINGE IM ONE (12:00)
== END 2018-01-11 13:15 | disposition home or self-care (01) ==
LOC: ED 09:02 → 4A 10:52 → INTOOBSV 10:52
PROVIDERS: ADMIT Hospitalist; ATTEND Hospitalist
DX: I25.10 Atherosclerotic heart disease of native coronary artery without angina pectoris (principal); I82.409 Acute embolism and thrombosis of unspecified deep veins of unspecified lower extremity; I10 Essential (primary) hypertension; E11.9 Type 2 diabetes mellitus without complications; E78.5 Hyperlipidemia, unspecified; M10.9 Gout, unspecified; M19.90 Unspecified osteoarthritis, unspecified site; J45.909 Unspecified asthma, uncomplicated; F10.10 Alcohol abuse, uncomplicated; Z86.73 Personal history of transient ischemic attack (TIA), and cerebral infarction without residual deficits; Z88.6 Allergy status to analgesic agent; Z95.1 Presence of aortocoronary bypass graft
CPT/HCPCS: 36415; 71045; 76536; 80048; 84439; 84443; 84484; 85025; 85610; 85730; 90686; 93005; 93010; 96374; 99285; A9270; J2270; G0378; J1650

== ENCOUNTER 2018-11-18 11:53 | Outpatient (CLI) | payer MEDICARE ==
--- NOTE | 2018-11-18 13:08 | Nuclear Medicine Report ---
V/Q Scan HISTORY: R79.89) ELEVATED D-DIMER. Acute chest pain TECHNIQUE: Patient was given 18 mCi of xenon-133 and 5.1 mCi of technetium MAA. COMPARISON: Chest x-ray from today FINDINGS: No appreciable mismatch between ventilation and perfusion imaging. IMPRESSION: Low probability for PTE. Signer Name: Florentino Thrasher MD Signed: 11/18/2018 1:03 PM Workstation Name: [id number]
--- NOTE | 2018-11-18 14:01 | XRay Report ---
PA AND LATERAL CXR HISTORY: Elevated d-dimer COMPARISON: 01/10/2018 FINDINGS: Cardiomediastinal silhouette: Normal cardiac size. Normal mediastinal contours. Lungs: Normal expansion. Normal lung aeration. Mild blunting of the posterior costophrenic angles. No pneumothorax. Pulmonary vascularity: Normal. Support hardware: None. Additional findings: Median sternotomy wires and mediastinal surgical sutures. IMPRESSION: 1. No CHF or pneumonia. 2. Small pleural effusions versus scarring at the posterior costophrenic angles. Signer Name: Michael Zhao MD Signed: 11/18/2018 1:57 PM Workstation Name: [id number]
== END 2018-11-18 11:54 | disposition home or self-care (01) ==
LOC: NM 11:53
PROVIDERS: ATTEND Internal Medicine Cardiovascular Disease
DX: R79.89 Other specified abnormal findings of blood chemistry (principal); E78.5 Hyperlipidemia, unspecified; I10 Essential (primary) hypertension; E78.00 Pure hypercholesterolemia, unspecified; J45.909 Unspecified asthma, uncomplicated
CPT/HCPCS: 71046; 78582; A9540; A9558

== ENCOUNTER 2019-06-02 08:10 | Observation (INO) | payer MEDICARE ==
--- NOTE | 2019-06-02 09:35 | XRay Report ---
CHEST 1 VIEW INDICATION / CLINICAL INFORMATION: Chest Pain. COMPARISON: 11/18/2018 FINDINGS: SUPPORT DEVICES: None. HEART / MEDIASTINUM: No significant abnormality. LUNGS / PLEURA: No significant pulmonary or pleural abnormality. No pneumothorax. ADDITIONAL FINDINGS: No significant additional findings. IMPRESSION: Sternotomy. No acute disease or interval change from 11/18/2018. Signer Name: Scooter Emerson MD FACArnaldo Signed: 06/02/2019 9:31 AM Workstation Name: [employer][id number]
[2019-06-02 09:50] LABS: Basophils # (Auto) 0.1 K/mm3 (0.0-0.1); Basophils % (Auto) 1.1 % (0.0-1.8); Eosinophils # (Auto) 0.3 K/mm3 (0.0-0.4); Eosinophils % (Auto) 4.6 % (0.0-4.3); Hematocrit 38.8 % (30.3-42.9); Hemoglobin 12.8 gm/dl (10.1-14.3); Lymphocytes # (Auto) 1.9 K/mm3 (1.2-5.4); Lymphocytes % (Auto) 27.5 % (13.4-35.0); Mean Corpuscular HGB Conc 33 % (30-34); Mean Corpuscular Volume 90 fl (79-97); Monocytes # (Auto) 0.5 K/mm3 (0.0-0.8); Monocytes % (Auto) 6.7 % (0.0-7.3); Platelet Count 336 K/mm3 (140-440); Red Blood Count 4.32 M/mm3 (3.65-5.03); Red Cell Distribution Width 16.9 % (13.2-15.2)
[2019-06-02 10:01] LABS: BUN/Creatinine Ratio 26; Blood Urea Nitrogen 13 mg/dL (7-17); Calcium 9.4 mg/dL (8.4-10.2); Hemolysis Index 0
[2019-06-02] MEDS ORDERED: NITROGLYCERIN 2% OINT 1 GM TP ONE (10:41)
[2019-06-02] MEDS ORDERED: ACETAMINOPHEN 325 MG TAB PO ONE (10:42)
--- NOTE | 2019-06-02 11:04 | Emergency Department Report ---
ED Chest Pain HPI - General Chief Complaint: Chest Pain Stated Complaint: CHEST PAIN Time Seen by Provider: 06/02/19 10:40 Source: patient Mode of arrival: Ambulatory Limitations: No Limitations - History of Present Illness Initial Comments: Patient is a 69-year-old F [place] female with a past medical history of hypertension NC who also status post a three-vessel CABG and 2012 who is presenting with chest pain. Patient states the pain started last night and is on the left chest and does radiate wraparound to her left back. She denies nausea vomiting or diaphoresis but she does have some shortness of breath when she exerts herself. Patient states the pain is fine as long as she is sitting still but anytime she gets up to go to the bathroom or move around she has chest discomfort. She denies any pain with movement of her arms she denies cough and pleuritic chest pain at this time. Severity scale (0 -10): 7 - Related Data Previous Rx's Medication Instructions Recorded Last Taken Type AtorvaSTATin [Lipitor] 40 mg PO HS #30 tablet 01/11/18 Unknown Rx Clopidogrel [Plavix] 75 mg PO DAILY #30 tablet 01/11/18 Unknown Rx Famotidine [Pepcid] 20 mg PO BID #60 tablet 01/11/18 Unknown Rx ISOSORBIDE MONOnitrate [Imdur ER] 60 mg PO QDAY #30 day 01/11/18 Unknown Rx Losartan [Cozaar] 100 mg PO QDAY #30 tablet 01/11/18 Unknown Rx Metoprolol [Lopressor TAB] 50 mg PO BID #60 tablet 01/11/18 Unknown Rx oxyCODONE /ACETAMINOPHEN [Percocet 1 tab PO Q4HR #12 tab 01/11/18 Unknown Rx 5/325] HYDROcodone/APAP 5-325 [[place] 1 each PO Q6HR PRN #12 tablet 02/10/18 Unknown Rx 5/325] Ibuprofen [Motrin] 800 mg PO Q8HR PRN #20 tablet 02/10/18 Unknown Rx predniSONE [Deltasone] 20 mg PO DAILY #15 tablet 02/10/18 Unknown Rx Allergies Allergy/AdvReac Type Severity Reaction Status Date / Time aspirin Allergy Swelling Verified 01/10/18 09:15 shellfish Allergy Anaphylaxis Uncoded 05/30/15 08:04 Heart Score - HEART Score History: Highly suspicious EKG: Non-specific Age: > 65 Risk factors: > 3 risk factors or hx of atherosclerotic disease Troponin: < normal limit HEART Score: 7 ED Review of Systems ROS: Stated complaint: CHEST PAIN Other details as noted in HPI Comment: All other systems reviewed and negative ED Past Medical Hx - Past Medical History Previous Medical History?: Yes Hx Hypertension: Yes Hx CVA: Yes (x3) Hx Heart Attack/AMI: Yes Hx Arthritis: Yes Hx Asthma: Yes Hx COPD: No Additional medical history: gout - Surgical History Past Surgical History?: Yes Hx Coronary Stent: Yes (1999 & 2001) Hx Open Heart Surgery: Yes Additional Surgical History: bypass x 4, bilateral knee surgeries - Social History Smoking Status: Never Smoker Substance Use Type: None - Medications Home Medications: Home Medications Medication Instructions Recorded Confirmed Last Taken Type AtorvaSTATin [Lipitor] 40 mg PO HS #30 tablet 01/11/18 Unknown Rx Clopidogrel [Plavix] 75 mg PO DAILY #30 tablet 01/11/18 Unknown Rx Famotidine [Pepcid] 20 mg PO BID #60 tablet 01/11/18 Unknown Rx ISOSORBIDE MONOnitrate [Imdur ER] 60 mg PO QDAY #30 day 01/11/18 Unknown Rx Losartan [Cozaar] 100 mg PO QDAY #30 tablet 01/11/18 Unknown Rx Metoprolol [Lopressor TAB] 50 mg PO BID #60 tablet 01/11/18 Unknown Rx oxyCODONE /ACETAMINOPHEN [Percocet 1 tab PO Q4HR #12 tab 01/11/18 Unknown Rx 5/325] HYDROcodone/APAP 5-325 [[place] 1 each PO Q6HR PRN #12 tablet 02/10/18 Unknown Rx 5/325] Ibuprofen [Motrin] 800 mg PO Q8HR PRN #20 tablet 02/10/18 Unknown Rx predniSONE [Deltasone] 20 mg PO DAILY #15 tablet 02/10/18 Unknown Rx ED Physical Exam - General Limitations: No Limitations General appearance: alert, in no apparent distress - Head Head exam: Present: atraumatic, normocephalic - Eye Eye exam: Present: normal appearance - ENT ENT exam: Present: mucous membranes moist - Neck Neck exam: Present: normal inspection - Respiratory Respiratory exam: Present: normal lung sounds bilaterally. Absent: respiratory distress, wheezes, rales, rhonchi - Cardiovascular Cardiovascular Exam: Present: regular rate, normal rhythm, normal heart sounds. Absent: systolic murmur, diastolic murmur, rubs, gallop - GI/Abdominal GI/Abdominal exam: Present: soft, normal bowel sounds. Absent: distended, tenderness, guarding, rebound - Extremities Exam Extremities exam: Present: normal inspection - Back Exam Back exam: Present: normal inspection - Neurological Exam Neurological exam: Present: alert, oriented X3 - Psychiatric Psychiatric exam: Present: normal affect, normal mood - Skin Skin exam: Present: warm, dry, intact, normal color. Absent: rash ED Course Vital Signs 06/02/19 06/02/19 06/02/19 08:16 10:55 12:17 Temperature 97.5 F L Pulse Rate 65 68 74 Respiratory 20 24 Rate Blood Pressure 146/84 144/78 Blood Pressure 130/78 [Left] O2 Sat by Pulse 98 97 Oximetry GEO score - Geo Score Age > 65: (1) Yes Aspirin use within the Past 7 Days: (1) Yes 3 or more CAD Risk Factors: (1) Yes 2 or more Angina events in past 24 hrs: (1) Yes Known CAD with more than 50% Stenosis: (1) Yes Elevated Cardiac Markers: (0) No ST Deviation Greater than 0.5mm: (0) No GEO Score: 5 ED Medical Decision Making - Lab Data Result diagrams: 06/02/19 09:19 06/02/19 09:19 Lab Results 06/02/19 06/02/19 Range/Units 09:19 09:19 WBC 6.9 (4.5-11.0) K/mm3 RBC 4.32 (3.65-5.03) M/mm3 Hgb 12.8 (10.1-14.3) gm/dl Hct 38.8 (30.3-42.9) % MCV 90 (79-97) fl MCH 30 (28-32) pg MCHC 33 (30-34) % RDW 16.9 H (13.2-15.2) % Plt Count 336 (140-440) K/mm3 Lymph % (Auto) 27.5 (13.4-35.0) % [place] % (Auto) 6.7 (0.0-7.3) % Eos % (Auto) 4.6 H (0.0-4.3) % Baso % (Auto) 1.1 (0.0-1.8) % Lymph # 1.9 (1.2-5.4) K/mm3 [place] # 0.5 (0.0-0.8) K/mm3 Eos # 0.3 (0.0-0.4) K/mm3 Baso # 0.1 (0.0-0.1) K/mm3 Seg Neutrophils % 60.1 (40.0-70.0) % Seg Neutrophils # 4.2 (1.8-7.7) K/mm3 Sodium 138 (137-145) mmol/L Potassium 4.1 (3.6-5.0) mmol/L Chloride 103.0 (98-107) mmol/L Carbon Dioxide 20 L (22-30) mmol/L Anion Gap 19 mmol/L BUN 13 (7-17) mg/dL Creatinine 0.5 L (0.7-1.2) mg/dL Estimated GFR > 60 ml/min BUN/Creatinine Ratio 26 % Glucose 107 H (65-100) mg/dL Calcium 9.4 (8.4-10.2) mg/dL Troponin T < 0.010 (0.00-0.029) ng/mL - EKG Data -: EKG Interpreted by Me - EKG Data 06/02/19 11:03 EKG shows sinus rhythm with a rate of 65. Evidence of LVH. Milam is normal intervals are normal. There is T wave inversions in the lateral leads. There is no ST segment elevation or depression. - Radiology Data [facility] [address] [place] [address] XRay Report Signed Patient: ALTA FELIZ MR#: [id number] : 1950 Acct:[id number] Age/Sex: 69 / F ADM Date: 06/02/19 Loc: ED Attending Dr: Ordering Physician: NEIL MO MD Date of Service: 06/02/19 Procedure(s): XR chest 1V ap Accession Number(s): [id number] cc: ED MD CHEPE Fluoro Time In Minutes: CHEST 1 VIEW INDICATION / CLINICAL INFORMATION: Chest Pain. COMPARISON: 11/18/2018 FINDINGS: SUPPORT DEVICES: None. HEART / MEDIASTINUM: No significant abnormality. LUNGS / PLEURA: No significant pulmonary or pleural abnormality. No pneumothorax. ADDITIONAL FINDINGS: No significant additional findings. IMPRESSION: Sternotomy. No acute disease or interval change from 11/18/2018. Signer Name: Scooter Emerson MD FACR Signed: 06/02/2019 9:31 AM Workstation Name: [id number] - Medical Decision Making Patient having very classic symptoms of angina. Because of the patient's his tory and the sudden onset patient will be admitted for work-up of unstable angina. Cardiology is been consulted to see the patient patient be admitted to the hospitalist service. Critical Care Time: Yes (30) Critical care attestation.: If time is entered above; I have spent that time in minutes in the direct care of this critically ill patient, excluding procedure time. ED Disposition Clinical Impression: Unstable angina Disposition: DC-09 OP ADMIT IP TO THIS HOSP Is pt being admited?: Yes Does the pt Need Aspirin: No Condition: Stable Instructions: Angina (ED) Time of Disposition: 12:23
--- NOTE | 2019-06-02 11:58 | Consultation ---
History of Present Illness Consult date: 06/02/19 Requesting physician: RANCHO OLIVIER Consult reason: chest pain, shortness of breath History of present illness: The pt is a 69 YO female with a past medical history of CAD, s/p PCI in 1999 and 2001, CABG (12/13/11, 4 grafts, RUIZ>LAD, SVG>OM, SVG>Diag, SVG>PDA), HTN, HLP, pre-diabetes, ASA allergy. She is followed in our office by Dr. Bird. She presented with c/o chest pain since yesterday around 2PM. She describes her chest pain as a constant substernal aching pain which is associated with SOB. She denies any palpitations, n/v, diaphoresis, dizziness or syncope. LHC done 11/2016 showed patent grafts. Echo done 11/2016 showed EF 60-65%, trace TR, impaired relaxation. Past History Past Medical History: other (as per HPI) Medications and Allergies Allergies Allergy/AdvReac Type Severity Reaction Status Date / Time aspirin Allergy Swelling Verified 01/10/18 09:15 shellfish Allergy Anaphylaxis Uncoded 05/30/15 08:04 Home Medications Medication Instructions Recorded Confirmed Last Taken Type AtorvaSTATin [Lipitor] 40 mg PO HS #30 tablet 01/11/18 Unknown Rx Clopidogrel [Plavix] 75 mg PO DAILY #30 tablet 01/11/18 Unknown Rx Famotidine [Pepcid] 20 mg PO BID #60 tablet 01/11/18 Unknown Rx ISOSORBIDE MONOnitrate [Imdur ER] 60 mg PO QDAY #30 day 01/11/18 Unknown Rx Losartan [Cozaar] 100 mg PO QDAY #30 tablet 01/11/18 Unknown Rx Metoprolol [Lopressor TAB] 50 mg PO BID #60 tablet 01/11/18 Unknown Rx oxyCODONE /ACETAMINOPHEN [Percocet 1 tab PO Q4HR #12 tab 01/11/18 Unknown Rx 5/325] HYDROcodone/APAP 5-325 [[place] 1 each PO Q6HR PRN #12 tablet 02/10/18 Unknown Rx 5/325] Ibuprofen [Motrin] 800 mg PO Q8HR PRN #20 tablet 02/10/18 Unknown Rx predniSONE [Deltasone] 20 mg PO DAILY #15 tablet 02/10/18 Unknown Rx Review of Systems Constitutional: no weight loss, no weight gain, no fever, no chills, no sweats Ears, nose, mouth and throat: no ear pain, no nose pain, no sinus pressure, no sinus pain Cardiovascular: chest pain, shortness of breath, dyspnea on exertion, no orthopnea, no palpitations, no rapid/irregular heart beat, no edema, no syncope, no lightheadedness Respiratory: shortness of breath, dyspnea on exertion, no cough, no congestion, no wheezing, no pain on inspiration Gastrointestinal: no abdominal pain, no nausea, no vomiting, no diarrhea, no constipation, no change in bowel habits Genitourinary Female: no pelvic pain, no flank pain, no dysuria, no urinary frequency, no urgency Musculoskeletal: no neck stiffness, no neck pain, no shooting arm pain, no arm numbness/tingling, no low back pain, no shooting leg pain Integumentary: no rash, no pruritis, no redness, no sores, no wounds Neurological: no head injury, no paralysis, no weakness, no parathesias, no numbness, no tingling, no seizures, no syncope Psychiatric: no anxiety Endocrine: no cold intolerance, no heat intolerance Hematologic/Lymphatic: no easy bruising, no easy bleeding Allergic/Immunologic: no urticaria Physical Examination Vital Signs Temp Pulse Resp BP Pulse Ox 97.5 F L 65 20 146/84 98 06/02/19 08:16 06/02/19 08:16 06/02/19 08:16 06/02/19 08:16 06/02/19 08:16 General appearance: no acute distress HEENT: Positive: PERRL, Normocephaly, Mucus Membranes Moist Neck: Positive: neck supple, trachea midline Cardiac: Positive: Reg Rate and Rhythm, S1/S2 Lungs: Positive: Decreased Breath Sounds Neuro: Positive: Grossly Intact Abdomen: Negative: Tender Skin: Negative: Rash Musculoskeletal: No Pain Extremities: Absent: edema Results 06/02/19 09:19 06/02/19 09:19 CBC 06/02/19 Range/Units 09:19 WBC 6.9 (4.5-11.0) K/mm3 RBC 4.32 (3.65-5.03) M/mm3 Hgb 12.8 (10.1-14.3) gm/dl Hct 38.8 (30.3-42.9) % Plt Count 336 (140-440) K/mm3 Lymph # 1.9 (1.2-5.4) K/mm3 [place] # 0.5 (0.0-0.8) K/mm3 Eos # 0.3 (0.0-0.4) K/mm3 Baso # 0.1 (0.0-0.1) K/mm3 Comprehensive Metabolic Panel 06/02/19 Range/Units 09:19 Sodium 138 (137-145) mmol/L Potassium 4.1 (3.6-5.0) mmol/L Chloride 103.0 (98-107) mmol/L Carbon Dioxide 20 L (22-30) mmol/L BUN 13 (7-17) mg/dL Creatinine 0.5 L (0.7-1.2) mg/dL Glucose 107 H (65-100) mg/dL Calcium 9.4 (8.4-10.2) mg/dL - Imaging and Cardiology Echo: report reviewed (11/2016 showed EF 60-65%, trace TR, impaired relaxation. ) Cardiac cath: report reviewed (C done 11/2016 showed patent grafts. ) EKG: report reviewed, image reviewed EKG interpretations - Telemetry EKG Rhythm: Sinus Rhythm - EKG Sinus rhythms and dysrhythmias: sinus rhythm Repolarization changes or abnormalities: ST or T wave suggestive of ischemia (t wave inversions lateral leads) Assessment and Plan Resume home cardiac regimen. Cont to trend Inderjit. Obtain echo. Plan for lexiscan MPI stress test in AM. NPO after MN. The patient has been seen in conjunction with Dr. Bird who agrees with the assessment and plan of care. - Patient Problems (1) Chest pain Current Visit: Yes Status: Acute Qualifiers: Ischemic chest pain type: other angina pectoris type (2) Abnormal EKG Current Visit: Yes Status: Acute (3) CAD (coronary artery disease) Current Visit: Yes Status: Chronic (4) Hx of CABG Current Visit: Yes Status: Chronic (5) Stented coronary artery Current Visit: Yes Status: Chronic (6) HTN (hypertension) Current Visit: Yes Status: Acute (7) Pre-diabetes Current Visit: Yes Status: Chronic (8) Aspirin allergy Current Visit: Yes Status: Chronic
--- NOTE | 2019-06-02 19:15 | History and Physical Report ---
History of Present Illness Date of examination: 06/02/19 Date of admission: 06/02/19 12:26 Chief complaint: Chest pain since a.m. History of present illness: 69-year-old F [place] female with a past medical history of hypertension [place] status post three-vessel CABG in 2012 presenting with chest pain.. Chest pain is left-sided and radiating to the back. No nausea vomiting or diaphoresis. Chest pain started this morning. No chest wall tenderness. No radiation. Chest pain is about 5 on a scale of 1-10. Patient on Plavix for coronary artery disease. No recent travel. No fever or chills. No sneezing. JANNA score is about 7 on a scale of 1-10. Patient being admitted for chest pain rule out [place] protocol. Patient also has arthritis asthma and gout. Cerebr ovascular accident in the past. Past Medical History Previous Medical History?: Yes Hypertension: Yes CVA: Yes (x3) Heart Attack/AMI: Yes Arthritis: Yes Asthma: Yes Additional medical history: gout Surgical History Past Surgical History?: Yes Coronary Stent: Yes (1999 & 2001) Open Heart Surgery: Yes Additional Surgical History: bypass x 4, bilateral knee surgeries Social History Smoking Status: Never Smoker Substance Use Type: None Family history Htn - Medications Home Medications: Home Medications Medication Instructions Recorded Confirmed Last Taken Type AtorvaSTATin [Lipitor] 40 mg PO HS #30 tablet 01/11/18 Unknown Rx Clopidogrel [Plavix] 75 mg PO DAILY #30 tablet 01/11/18 Unknown Rx Famotidine [Pepcid] 20 mg PO BID #60 tablet 01/11/18 Unknown Rx ISOSORBIDE MONOnitrate [Imdur ER] 60 mg PO QDAY #30 day 01/11/18 Unknown Rx Losartan [Cozaar] 100 mg PO QDAY #30 tablet 01/11/18 Unknown Rx Metoprolol [Lopressor TAB] 50 mg PO BID #60 tablet 01/11/18 Unknown Rx oxyCODONE /ACETAMINOPHEN [Percocet 1 tab PO Q4HR #12 tab 01/11/18 Unknown Rx 5/325] HYDROcodone/APAP 5-325 [[place] 1 each PO Q6HR PRN #12 tablet 02/10/18 Unknown Rx 5/325] Ibuprofen [Motrin] 800 mg PO Q8HR PRN #20 tablet 02/10/18 Unknown Rx predniSONE [Deltasone] 20 mg PO DAILY #15 tablet 02/10/18 Unknown Rx Review of Systems ROS: Stated complaint: CHEST PAIN Other details as noted in HPI Comment: All other systems reviewed and negative Past History Past Medical History: other (as per HPI) Medications and Allergies Allergies Allergy/AdvReac Type Severity Reaction Status Date / Time aspirin Allergy Swelling Verified 01/10/18 09:15 shellfish Allergy Anaphylaxis Uncoded 05/30/15 08:04 Home Medications Medication Instructions Recorded Confirmed Last Taken Type AtorvaSTATin [Lipitor] 40 mg PO HS #30 tablet 01/11/18 06/02/19 06/02/19 06:00 Rx 40 Clopidogrel [Plavix] 75 mg PO DAILY #30 tablet 01/11/18 06/02/19 06/02/19 06:00 Rx 75 Metoprolol [Lopressor TAB] 50 mg PO BID #60 tablet 01/11/18 06/02/19 06/02/19 06:00 Rx 50 Amlodipine Besylate 5 mg PO DAILY 06/02/19 06/02/19 06/02/19 06:00 History 5 allopurinoL [Zyloprim] 100 mg PO QDAY 06/02/19 06/02/19 06/02/19 06:00 History 100 Active Meds: Active Medications Atorvastatin Calcium (Lipitor) 40 mg PO HS [place] Clopidogrel Bisulfate (Plavix) 75 mg PO DAILY [facility] Isosorbide Mononitrate (Imdur) 60 mg PO QDAY [facility] Metoprolol Tartrate (Metoprolol) 50 mg PO BID [facility] Exam - Constitutional Vitals: Temp Pulse Resp BP Pulse Ox 98.5 F 70 18 142/85 96 06/02/19 15:10 06/02/19 15:10 06/02/19 15:10 06/02/19 15:10 06/02/19 15:10 General appearance: Present: no acute distress, well-nourished - EENT Eyes: Present: PERRL ENT: hearing intact, clear oral mucosa - Neck Neck: Present: supple, normal ROM - Respiratory Respiratory effort: normal Respiratory: bilateral: CTA - Cardiovascular Heart rate: 78 Rhythm: regular Heart Sounds: Present: S1 & S2. Absent: rub, click - Extremities Extremities: pulses symmetrical, No edema Peripheral Pulses: within normal limits - Abdominal General gastrointestinal: Present: soft, non-tender, non-distended, normal bowel sounds Female genitourinary: Present: normal - Integumentary Integumentary: Present: clear, warm, dry - Musculoskeletal Musculoskeletal: gait normal, strength equal bilaterally - Psychiatric Psychiatric: appropriate mood/affect, intact judgment & insight - Neurologic Neurologic: CNII-XII intact, moves all extremities - Allied Health Allied health notes reviewed: nursing, case management JANNA score - Janna Score Age > 65: (1) Yes Aspirin use within the Past 7 Days: (1) Yes 3 or more CAD Risk Factors: (1) Yes 2 or more Angina events in past 24 hrs: (1) Yes Known CAD with more than 50% Stenosis: (1) Yes Elevated Cardiac Markers: (0) No ST Deviation Greater than 0.5mm: (0) No JANNA Score: 5 Results - Labs CBC & Chem 7: 06/02/19 09:19 06/02/19 09:19 Labs: Laboratory Last Values WBC 6.9 K/mm3 (4.5-11.0) 06/02/19 09:19 RBC 4.32 M/mm3 (3.65-5.03) 06/02/19 09:19 Hgb 12.8 gm/dl (10.1-14.3) 06/02/19 09:19 Hct 38.8 % (30.3-42.9) 06/02/19 09:19 MCV 90 fl (79-97) 06/02/19 09:19 MCH 30 pg (28-32) 06/02/19 09:19 MCHC 33 % (30-34) 06/02/19 09:19 RDW 16.9 % (13.2-15.2) H 06/02/19 09:19 Plt Count 336 K/mm3 (140-440) 06/02/19 09:19 Lymph % (Auto) 27.5 % (13.4-35.0) 06/02/19 09:19 [place] % (Auto) 6.7 % (0.0-7.3) 06/02/19 09:19 Eos % (Auto) 4.6 % (0.0-4.3) H 06/02/19 09:19 Baso % (Auto) 1.1 % (0.0-1.8) 06/02/19 09:19 Lymph # 1.9 K/mm3 (1.2-5.4) 06/02/19 09:19 [place] # 0.5 K/mm3 (0.0-0.8) 06/02/19 09:19 Eos # 0.3 K/mm3 (0.0-0.4) 06/02/19 09:19 Baso # 0.1 K/mm3 (0.0-0.1) 06/02/19 09:19 Seg Neutrophils % 60.1 % (40.0-70.0) 06/02/19 09:19 Seg Neutrophils # 4.2 K/mm3 (1.8-7.7) 06/02/19 09:19 Sodium 138 mmol/L (137-145) 06/02/19 09:19 Potassium 4.1 mmol/L (3.6-5.0) 06/02/19 09:19 Chloride 103.0 mmol/L (98-107) 06/02/19 09:19 Carbon Dioxide 20 mmol/L (22-30) L 06/02/19 09:19 Anion Gap 19 mmol/L 06/02/19 09:19 BUN 13 mg/dL (7-17) 06/02/19 09:19 Creatinine 0.5 mg/dL (0.7-1.2) L 06/02/19 09:19 Estimated GFR > 60 ml/min 06/02/19 09:19 BUN/Creatinine Ratio 26 % 06/02/19 09:19 Glucose 107 mg/dL (65-100) H 06/02/19 09:19 Calcium 9.4 mg/dL (8.4-10.2) 06/02/19 09:19 Troponin T < 0.010 ng/mL (0.00-0.029) 06/02/19 14:50 Short CBC 06/02/19 Range/Units 09:19 WBC 6.9 (4.5-11.0) K/mm3 Hgb 12.8 (10.1-14.3) gm/dl Hct 38.8 (30.3-42.9) % Plt Count 336 (140-440) K/mm3 BMP 06/02/19 09:19 Sodium 138 Potassium 4.1 Chloride 103.0 Carbon Dioxide 20 L BUN 13 Creatinine 0.5 L Glucose 107 H Calcium 9.4 Cardiac Enzymes 03/10/20 03/10/20 Range/Units 09:19 14:50 Troponin T < 0.010 < 0.010 (0.00-0.029) ng/mL - Imaging and Cardiology EKG: report reviewed (65/min LVH) Assessment and Plan Advance Directives: Yes (Full code) VTE prophylaxis?: Chemical Plan of care discussed with patient/family: Yes - Patient Problems (1) Chest pain Current Visit: Yes Status: Acute Qualifiers: Ischemic chest pain type: other angina pectoris type Plan to address problem: Serial troponins and Stress test in AM (2) HTN (hypertension) Current Visit: Yes Status: Chronic Qualifiers: Hypertension type: essential hypertension Qualified Code(s): I10 - Essential (primary) hypertension Plan to address problem: Cont Antihypertensives (3) CAD (coronary artery disease) Current Visit: Yes Status: Chronic Qualifiers: Coronary Disease-Associated Artery/Lesion type: [place] artery [place] vs. transplanted heart: [place] heart Plan to address problem: Cont Plavix and Ismo (4) Hyperlipidemia Current Visit: No Status: Chronic Qualifiers: Hyperlipidemia type: mixed hyperlipidemia Qualified Code(s): E78.2 - Mixed hyperlipidemia Plan to address problem: Cont statins (5) DVT prophylaxis Current Visit: No Status: Acute Plan to address problem: On HeparinandGI prophylaxis
[2019-06-02] MEDS: METOPROLOL TARTRATE 50 MG TAB PO SCH (21:37)
[2019-06-02] MEDS ORDERED: oxyCODONE /ACETAMINOPHEN 5-325MG TAB PO PRN (21:39)
[2019-06-03] MEDS ORDERED: REGADENOSON 0.4 MG/5 ML INJ IV ONE ×2 (06:52→07:05)
--- NOTE | 2019-06-03 09:22 | Treadmill Report ---
LEXISCAN STRESS TEST REASON FOR STUDY: Chest pain. STRESS TEST PROTOCOL: The patient received 0.4 mg of Lexiscan intravenously over 10 seconds. Tc-99m Tetrofosmin was subsequently injected. BASELINE ECG: Normal sinus rhythm. T-wave abnormality. Consider lateral ischemia. Lexiscan ECG: No significant change from baseline. No chest pain. No arrhythmias. IMPRESSION: Nondiagnostic due to baseline ECG abnormalities. Nuclear imaging report to follow. JOB# [id number] AGO/NTS
[2019-06-03 09:47] VITALS: BP 170/85
[2019-06-03] MEDS ORDERED: CLOPIDOGREL 75 MG TAB PO SCH (10:00)
[2019-06-03] MEDS: METOPROLOL TARTRATE 50 MG TAB PO SCH (10:13)
--- NOTE | 2019-06-03 10:56 | Progress Note ---
Assessment and Plan S/p lexiscan MPI stress test this AM which showed minimal ischemia. tte reviewed - EF 65-70%, mild MR and TR. Currently stable cardiac status. Chest pain currently resolved. Cont medical therapy. Pt may discharge from cardiology standpoint. Follow up in our [place] office with Dr. Bird on 06/12/2019 @ 1:45PM. The patient has been seen in conjunction with Dr. Bird who agrees with the assessment and plan of care. - Patient Problems (1) Chest pain Current Visit: Yes Status: Resolved Qualifiers: Ischemic chest pain type: other angina pectoris type (2) Abnormal EKG Current Visit: Yes Status: Acute (3) CAD (coronary artery disease) Current Visit: Yes Status: Chronic Qualifiers: Coronary Disease-Associated Artery/Lesion type: [place] artery [place] vs. transplanted heart: [place] heart (4) Hx of CABG Current Visit: Yes Status: Chronic (5) Stented coronary artery Current Visit: Yes Status: Chronic (6) HTN (hypertension) Current Visit: Yes Status: Chronic Qualifiers: Hypertension type: essential hypertension Qualified Code(s): I10 - Essential (primary) hypertension (7) Pre-diabetes Current Visit: Yes Status: Chronic (8) Aspirin allergy Current Visit: Yes Status: Chronic Subjective Date of service: 06/03/19 Principal diagnosis: cp Interval history: pt for stress test, no current complaints. in SR on tele, no acute events overnight. Objective Last Vital Signs Temp 97.8 F 06/03/19 07:57 Pulse 78 06/03/19 09:00 Resp 18 06/03/19 07:57 BP 170/85 06/03/19 09:22 Pulse Ox 99 06/03/19 07:57 - Physical Examination General: No Apparent Distress HEENT: Positive: PERRL, Normocephaly, Mucus Membranes Moist Neck: Positive: neck supple, trachea midline Cardiac: Positive: Reg Rate and Rhythm, S1/S2 Lungs: Positive: Decreased Breath Sounds Neuro: Positive: Grossly Intact Abdomen: Negative: Tender Skin: Negative: Rash Musculoskeletal: No Pain Extremities: Absent: edema - Imaging and Cardiology EKG: report reviewed (65/min LVH) Echo: report reviewed (11/2016 showed EF 60-65%, trace TR, impaired relaxation. ) Cardiac cath: report reviewed (LHC done 11/2016 showed patent grafts. ) - Telemetry EKG Rhythm: Sinus Rhythm - EKG Sinus rhythms and dysrhythmias: sinus rhythm Repolarization changes or abnormalities: ST or T wave suggestive of ischemia (t wave inversions lateral leads)
--- NOTE | 2019-06-03 13:22 | Discharge Summary ---
Providers - Providers Date of Admission: 06/02/19 12:26 Date of discharge: 06/03/19 Attending physician: BECKY VASQUEZ 06/03/19 07:52 Consult to Physician [CONS] Routine Comment: Consulting Provider: JORDON BIRD Physician Instructions: Reason For Exam: Chest pain Primary care physician: RANDY VILLALOBOS Hospitalization Condition: Stable Pertinent studies: CXR 2d echo MPI stress test Hospital course: 69-year-old F [place] Islander female with a past medical history of hypertension [place] status post three-vessel CABG in 2011 presenting with chest pain. Patient was evaluated in the ER, initial cardiac enzyme and EKG was unremarkable, chest x-ray showed no infiltrates. Patient was admitted and underwent myocardial stress test. S/p lexiscan MPI stress test this AM which showed minimal ischemia. tte reviewed - EF 65-70%, mild MR and TR. Currently stable cardiac status and Chest pain resolved. Patient was then discharged home in stable condition with outpatient follow-up. Follow up at [place] office with Dr. Bird on 06/12/2019 @ 1:45PM. Discharge diagnosis: (1) Chest pain - likely from GERD Current Visit: Yes Status: Resolved Qualifiers: Ischemic chest pain type: other angina pectoris type (2) Abnormal EKG Current Visit: Yes Status: Acute (3) CAD (coronary artery disease) Current Visit: Yes Status: Chronic Qualifiers: Coronary Disease-Associated Artery/Lesion type: [place] artery [place] vs. transplanted heart: [place] heart (4) Hx of CABG Current Visit: Yes Status: Chronic (5) Stented coronary artery Current Visit: Yes Status: Chronic (6) HTN (hypertension) Current Visit: Yes Status: Chronic Qualifiers: Hypertension type: essential hypertension Qualified Code(s): I10 - Essential (primary) hypertension (7) Pre-diabetes Current Visit: Yes Status: Chronic (8) Aspirin allergy Current Visit: Yes Status: Chronic Disposition: DC-01 TO HOME OR SELFCARE Time spent for discharge: 34 minutes Core Measure Documentation - Palliative Care Palliative Care/ Comfort Measures: Not Applicable - Core Measures Any of the following diagnoses?: none Exam - Constitutional Vitals: Temp Pulse Resp BP Pulse Ox 97.8 F 78 18 170/85 99 06/03/19 07:57 06/03/19 09:00 06/03/19 07:57 06/03/19 09:22 06/03/19 07:57 General appearance: Present: no acute distress, well-nourished - EENT Eyes: Present: PERRL ENT: hearing intact, clear oral mucosa - Neck Neck: Present: supple, normal ROM - Respiratory Respiratory effort: normal Respiratory: bilateral: CTA - Cardiovascular Heart Sounds: Present: S1 & S2. Absent: rub, click - Extremities Extremities: pulses symmetrical, No edema Peripheral Pulses: within normal limits - Abdominal General gastrointestinal: Present: soft, non-tender, non-distended, normal bowel sounds - Integumentary Integumentary: Present: clear, warm, dry - Musculoskeletal Musculoskeletal: gait normal, strength equal bilaterally - Psychiatric Psychiatric: appropriate mood/affect, intact judgment & insight - Neurologic Neurologic: CNII-XII intact, moves all extremities Plan Activity: advance as tolerated Weight Bearing Status: Weight Bear as Tolerated Diet: low fat, low salt Follow up with: JORDON BIRD MD [Staff Physician] - 7 Days (Follow up in our [place] office with Dr. Bird on 06/12/2019 @ 1:45PM. ) RANDY VILLALOBOS MD [Primary Care Provider] - 7 Days Prescriptions: Pantoprazole [Protonix] 40 mg PO QDAY #30 tablet
--- NOTE | 2019-06-03 17:36 | Treadmill Report ---
THALLIUM REPORT REASON FOR STUDY: Chest pain. IMAGING PROTOCOL: The patient received 10 mCi of technetium-99 Tetrofosmin for rest imaging and 28 mCi of technetium-99 Tetrofosmin for stress imaging. Imaging for all procedures was completed 30-90 minutes following the initial injection of Technetium 99m Tetrofosmin. SPECT imaging in the 180 degree arc was performed in the right anterior oblique projection. Computerized reconstruction of the images was performed for analysis. NUCLEAR IMAGING RESULTS: Normal left ventricular cavity size with no change from stress to rest. Distribution of radionuclide within the left ventricle revealed a small area of photo-induction involving the anteroapical region. The degree of photo-induction is mild. Rest imaging showed complete improvement in this defect. Gated SPECT imaging revealed normal global LV systolic function with no significant wall motion abnormalities. The calculated left ventricular ejection fraction is 68%. IMPRESSION: Small reversible anteroapical defect. Normal global left ventricular systolic function with no significant wall motion abnormalities. Ejection fraction 68%. These findings suggest minimal reversible ischemia in the left anterior descending coronary artery territory. No evidence of prior infarction. JOB# [id number] BARBI/NTS
== END 2019-06-03 14:28 | disposition home or self-care (01) ==
LOC: ED 08:10 → 4A 12:26
PROVIDERS: ADMIT Internal Medicine; ATTEND Internal Medicine
DX: I20.0 Unstable angina (principal); R07.89 Other chest pain; I10 Essential (primary) hypertension; E78.5 Hyperlipidemia, unspecified; M19.90 Unspecified osteoarthritis, unspecified site; M10.9 Gout, unspecified; R94.31 Abnormal electrocardiogram [ECG] [EKG]; J45.909 Unspecified asthma, uncomplicated; Z86.73 Personal history of transient ischemic attack (TIA), and cerebral infarction without residual deficits; Z95.1 Presence of aortocoronary bypass graft
CPT/HCPCS: 36415; 71045; 78452; 80048; 84484; 85025; 93005; 93010; 93017; 93306; 99291; A9270; A9502; G0378; J2785

== ENCOUNTER 2019-06-05 18:13 | Emergency (ER) | payer MEDICARE ==
[2019-06-05] MEDS ORDERED: ONDANSETRON 4 MG/2 ML INJ IM ONE (19:30)
[2019-06-05] MEDS ORDERED: MORPHINE 4 MG/1 ML INJ IM ONE (19:30)
--- NOTE | 2019-06-05 20:11 | XRay Report ---
Right rib series 4 views Indication: Rib pain following a fall Findings: There is no fracture or other acute radiographic abnormality of the right ribs. No pneumothorax is se en. Signer Name: Cristhian Bender MD Signed: 06/05/2019 8:06 PM Workstation Name: [id number]
[2019-06-05] MEDS ORDERED: MORPHINE 4 MG/1 ML INJ IV ONE (20:27)
--- NOTE | 2019-06-05 20:51 | Emergency Department Report ---
ED General Adult HPI - General Chief complaint: Fall Stated complaint: RIB PAIN Time Seen by Provider: 06/05/19 19:14 Source: EMS Mode of arrival: Ambulatory Limitations: No Limitations - History of Present Illness Initial comments: Patient presents to the emergency department the chief complaint of falling down steps. Patient states she was just released from the hospital yesterday and was celebrating with her sister and fell down the steps. Patient states she drank 4 shots of vodka today. Patient is not sure if she hit her head but she denies l oss of consciousness. Patient also complains of a headache and some neck pain. -: Sudden Location: neck Radiation: non-radiation Severity scale (0 -10): 4 Quality: aching Consistency: constant Improves with: none Worsens with: none Associated Symptoms: denies other symptoms Treatments Prior to Arrival: none - Related Data Home Medications Medication Instructions Recorded Confirmed Last Taken Amlodipine Besylate 5 mg PO DAILY 06/02/19 06/02/19 06/02/19 06:00 5 allopurinoL [Zyloprim] 100 mg PO QDAY 06/02/19 06/02/19 06/02/19 06:00 100 Previous Rx's Medication Instructions Recorded Last Taken Type AtorvaSTATin [Lipitor] 40 mg PO HS #30 tablet 01/11/18 06/02/19 06:00 Rx 40 Clopidogrel [Plavix] 75 mg PO DAILY #30 tablet 01/11/18 06/02/19 06:00 Rx 75 Metoprolol [Lopressor TAB] 50 mg PO BID #60 tablet 01/11/18 06/02/19 06:00 Rx 50 Pantoprazole [Protonix] 40 mg PO QDAY #30 tablet 06/03/19 Unknown Rx HYDROcodone/APAP 5-325 [[place] 1 each PO Q6HR PRN #12 tablet 06/05/19 Unknown Rx 5/325] Allergies Allergy/AdvReac Type Severity Reaction Status Date / Time aspirin Allergy Swelling Verified 01/10/18 09:15 shellfish Allergy Anaphylaxis Uncoded 05/30/15 08:04 ED Review of Systems ROS: Stated complaint: RIB PAIN Other details as noted in HPI Comment: All other systems reviewed and negative Constitutional: denies: chills, fever Eyes: denies: eye pain, eye discharge, vision change ENT: denies: ear pain, throat pain Respiratory: denies: cough, shortness of breath, wheezing Cardiovascular: denies: chest pain, palpitations Endocrine: no symptoms reported Gastrointestinal: denies: abdominal pain, nausea, diarrhea Genitourinary: denies: urgency, dysuria, discharge Musculoskeletal: denies: back pain, joint swelling, arthralgia Skin: denies: rash, lesions Neurological: denies: headache, weakness, paresthesias Psychiatric: denies: anxiety, depression Hematological/Lymphatic: denies: easy bleeding, easy bruising ED Past Medical Hx - Past Medical History Previous Medical History?: Yes Hx Hypertension: Yes Hx CVA: Yes (x3) Hx Heart Attack/AMI: Yes Hx Arthritis: Yes Hx Asthma: Yes Hx COPD: No Additional medical history: gout - Surgical History Past Surgical History?: Yes Hx Coronary Stent: Yes (1999 & 2001) Hx Open Heart Surgery: Yes Additional Surgical History: bypass x 4, bilateral knee surgeries - Social History Smoking Status: Never Smoker Substance Use Type: None - Medications Home Medications: Home Medications Medication Instructions Recorded Confirmed Last Taken Type AtorvaSTATin [Lipitor] 40 mg PO HS #30 tablet 01/11/18 06/02/19 06/02/19 06:00 Rx 40 Clopidogrel [Plavix] 75 mg PO DAILY #30 tablet 01/11/18 06/02/19 06/02/19 06:00 Rx 75 Metoprolol [Lopressor TAB] 50 mg PO BID #60 tablet 01/11/18 06/02/19 06/02/19 06:00 Rx 50 Amlodipine Besylate 5 mg PO DAILY 06/02/19 06/02/19 06/02/19 06:00 History 5 allopurinoL [Zyloprim] 100 mg PO QDAY 06/02/19 06/02/19 06/02/19 06:00 History 100 Pantoprazole [Protonix] 40 mg PO QDAY #30 tablet 06/03/19 Unknown Rx HYDROcodone/APAP 5-325 [[place] 1 each PO Q6HR PRN #12 tablet 06/05/19 Unknown Rx 5/325] ED Physical Exam - General Limitations: No Limitations General appearance: alert, in no apparent distress - Head Head exam: Present: atraumatic, normocephalic - Eye Eye exam: Present: normal appearance, PERRL, EOMI - ENT ENT exam: Present: mucous membranes moist - Neck Neck exam: Present: tenderness (Paracervical tenderness on palpation) - Respiratory Respiratory exam: Present: normal lung sounds bilaterally, chest wall tenderness (Patient has tenderness to palpation of the right chest wall). Absent: respiratory distress - Cardiovascular Cardiovascular Exam: Present: regular rate, normal rhythm. Absent: systolic murmur, diastolic murmur, rubs, gallop - GI/Abdominal GI/Abdominal exam: Present: soft, normal bowel sounds. Absent: distended, tenderness - Extremities Exam Extremities exam: Present: normal inspection - Back Exam Back exam: Present: normal inspection - Neurological Exam Neurological exam: Present: alert, oriented X3, CN II-XII intact. Absent: motor sensory deficit - Psychiatric Psychiatric exam: Present: normal affect, normal mood - Skin Skin exam: Present: warm, dry, intact, normal color. Absent: rash ED Course Vital Signs 06/05/19 06/05/19 06/05/19 18:47 19:37 20:37 Temperature 98.5 F Pulse Rate 84 Respiratory 19 18 18 Rate Blood Pressure 132/79 Blood Pressure 132/79 [Right] O2 Sat by Pulse 95 Oximetry ED Medical Decision Making - Lab Data Result diagrams: 06/05/19 21:24 Lab Results 06/05/19 06/05/19 Range/Units 19:41 21:24 Sodium 138 (137-145) mmol/L Potassium 3.8 (3.6-5.0) mmol/L Chloride 101.0 (98-107) mmol/L Carbon Dioxide 22 (22-30) mmol/L Anion Gap 19 mmol/L BUN 14 (7-17) mg/dL Creatinine 0.7 (0.7-1.2) mg/dL Estimated GFR > 60 ml/min BUN/Creatinine Ratio 20 % Glucose 111 H (65-100) mg/dL Calcium 9.6 (8.4-10.2) mg/dL Plasma/Serum Alcohol 0.21 H (0-0.07) % - Medical Decision Making CT scans were obtained constipation was still complaining of right-sided chest pain thus scan was ordered to evaluate for intra-thoracic injury. CT of the head and neck was done due to patient's nature injury and her being inebriated Results discussed with patient Critical care attestation.: If time is entered above; I have spent that time in minutes in the direct care of this critically ill patient, excluding procedure time. ED Disposition Clinical Impression: Closed head injury, Cervical strain, acute, Contusion of rib on right side Disposition: DC-01 TO HOME OR SELFCARE Is pt being admited?: No Does the pt Need Aspirin: No Condition: Stable Instructions: Minor Head Injury in Children (ED), Cervical Spine Strain (ED), Alcohol Intoxication (ED) Additional Instructions: return if worse Time of Disposition: 23:31
--- NOTE | 2019-06-05 21:07 | XRay Report ---
CERVICAL SPINE 3 VIEWS. INDICATION / CLINICAL INFORMATION: fall down steps COMPARISON: None available. FINDINGS: BONES / JOINT(S): Limited evaluation due to body habitus. The lower cervical spine is not well imaged . Diffuse degenerative disc disease is moderate. SOFT TISSUES: Not well evaluated. ADDITIONAL FINDINGS: None. Signer Name: Yves Morrow MD Signed: 06/05/2019 9:03 PM Workstation Name: [id number]
[2019-06-05 21:50] LABS: BUN/Creatinine Ratio 20; Blood Urea Nitrogen 14 mg/dL (7-17); Calcium 9.6 mg/dL (8.4-10.2); Hemolysis Index 19
--- NOTE | 2019-06-05 22:45 | Cat Scan Report ---
CT head/brain wo con INDICATION: closed head injury. TECHNIQUE: All CT scans at this location are performed using the following dose modulation technique: Automated exposure control. CONTRAST: None. COMPARISON: None available. FINDINGS: The ventricular system is appropriate in size and configuration without midline shift. Nega tive for mass, stroke or hemorrhage. Imaged portions the paranasal sinuses are clear. The bones are unremarkable. IMPRESSION: Age-appropriate brain. Signer Name: Yves Morrow MD Signed: 06/05/2019 10:40 PM Workstation Name: [id number]
--- NOTE | 2019-06-05 22:53 | Cat Scan Report ---
CT chest w con INDICATION: MAIN: right chest pain/trauma/fall down steps 100cc of 300 bolus given . TECHNIQUE: All CT scans at this location are performed using CT dose reduction for ALARA by means of automated e xposure control. COMPARISON: None available. FINDINGS: 2.3 cm low-attenuation lesion, probably cyst, in the right thyroid lobe. Cardiomegaly. Diffuse inters titial edema with bibasilar atelectasis. Minimal pleural effusions. Previous sternotomy. No rib fractures or other acute skeletal lesions. No pneumothorax. IMPRESSION: 1. Findings suggest mild congestive failure. 2. No acute abnormalities. Signer Name: Tomi Helms MD Signed: 06/05/2019 10:49 PM Workstation Name: [id number]
[2019-06-05] MEDS ORDERED: KETOROLAC 30 MG/1 ML INJ IM ONE (23:21)
[2019-06-06 00:04] VITALS: BP 142/85
== END 2019-06-05 23:40 | disposition home or self-care (01) ==
LOC: ED 18:13
DX: S16.1XXA Strain of muscle, fascia and tendon at neck level, initial encounter (principal); S20.211A Contusion of right front wall of thorax, initial encounter; S09.90XA Unspecified injury of head, initial encounter; I10 Essential (primary) hypertension; M19.91 Primary osteoarthritis, unspecified site; Z98.890 Other specified postprocedural states; Z79.899 Other long term (current) drug therapy; Z88.6 Allergy status to analgesic agent; Z91.013 Allergy to seafood; W10.9XXA Fall (on) (from) unspecified stairs and steps, initial encounter; Y93.89 Activity, other specified; Y92.89 Other specified places as the place of occurrence of the external cause; Y99.8 Other external cause status
CPT/HCPCS: 36415; 70450; 71100; 71260; 72040; 80048; 96372; 96374; 99284; J1885; J2270; J2405; Q9967; 80320; G0480